=== PATIENT | male | born 1980 | race Caucasian/White ===

== ENCOUNTER → 2018-06-26 | Outpatient (CLI) | payer MEDICARE, MEDICAID ==
[2016-02-11 12:03] VITALS: BP 123/73
[~2018-06-26] MED LIST: ACET325T9 PO; CETI10TA16 PO; CLON2TAB9 PO; DIVA-53 PO; GABA300C18 PO; HYDR-2145 PO; HYDR-2761 PO; LISI1TAB7 PO; METF10007 PO; OLAN15TA3 PO; ONDA4TAB7 PO; OXCA300T19 PO; OXYC1TAB15 PO; PRAMIPEXOLE PO; PRAZ5CAP2 PO; RISP2TAB33 PO; SIMV40TA3 PO; TRAZ-86 PO
--- NOTE | 2018-06-26 10:16 | KCIC ---
MRI left knee without contrast dated 06/26/2018. No comparison available. CLINICAL INDICATION: Left knee pain for one month. No known injury. TECHNIQUE: Routine multiplanar multisequence MR imaging performed. FINDINGS: Bone marrow signal is homogeneous. No marrow edema. Articular cartilage is intact. No osteochondral defect. There is mild thinning of the cartilage of the medial and lateral patellar facet and medial and lateral femoral trochlea. No significant joint effusion. No loose body. No significant popliteal cyst. Anterior cruciate and posterior cruciate ligaments intact. Medial and lateral collateral complexes intact. Iliotibial band, popliteus tendon and pes anserine complex within normal limits. Quadriceps and patellar tendon are intact. No abnormality of the medial or lateral retinaculum. Both menisci are normal in morphology and signal. No articular surface tear or para meniscal cyst. IMPRESSION: 1. No evidence of internal derangement. 2. Mild anterior compartment chondromalacia. Electronically signed by: Juni Christina MD (06/26/2018 10:13 AM) [id number]
== END | disposition home or self-care (01) ==
LOC: KCIC MRI 08:59
PROVIDERS: ATTEND Orthopaedic Surgery Sports Medicine
DX: M94.262 Chondromalacia, left knee (principal)
CPT/HCPCS: 73721

== ENCOUNTER → 2019-05-14 | Outpatient (CLI) | payer OTHER ==
[2016-02-11 12:03] VITALS: BP 123/73
[~2019-05-14] MED LIST changes: +LISI1TAB20 PO; -LISI1TAB7 PO; +SIMV40TA18 PO; -SIMV40TA3 PO; +TRAZ-123 PO; -TRAZ-86 PO
--- NOTE | 2019-05-14 10:20 | KCIC ---
AP and Lateral Views of the Chest 05/14/2019 12:00 AM Indication: Cough, shortness of breath, symptoms x3 months. Comparison: chest radiograph January 01, 2016. Findings: There is no focal consolidation or infiltrate identified. The cardiomediastinal silhouette is within normal limits. There is no evidence of pneumothorax or pleural effusion. No acute osseous abnormalities are identified. Impression: No evidence of acute cardiopulmonary process. Electronically signed by: Cole Major MD (05/14/2019 10:17 AM) [id number]
== END | disposition home or self-care (01) ==
LOC: KCIC 09:40
PROVIDERS: ATTEND Internal Medicine Pulmonary Disease
DX: R05 Cough (principal); R06.02 Shortness of breath
CPT/HCPCS: 71046

== ENCOUNTER → 2019-06-14 | Outpatient (CLI) | payer OTHER ==
[2016-02-11 12:03] VITALS: BP 123/73
== END ==
LOC: LAB 09:53
PROVIDERS: ATTEND Orthopaedic Surgery Sports Medicine
DX: M17.11 Unilateral primary osteoarthritis, right knee (principal)
CPT/HCPCS: 36415; 85651; 86141

== ENCOUNTER → 2019-06-15 | Outpatient (CLI) | payer OTHER ==
[2016-02-11 12:03] VITALS: BP 123/73
--- NOTE | 2019-06-15 10:23 | RAD ---
MRI study of the right shoulder without contrast Clinical indications: Worsening right shoulder pain. No known injury. TECHNIQUE: Noncontrast MRI sequences of the right shoulder were performed in all 3 planes. COMPARISON: Radiographic study of the right shoulder dated 06/14/2019. FINDINGS: There is increased signal within the supraspinatus tendon and infraspinatus tendon consistent with tendinosis. Partial articular surface tear of the lateral aspect of the supraspinatus tendon and infraspinatus tendon is seen at the attachment to the greater tubercle. However no full-thickness tear or complete tear of these tendons is seen. Subscapularis tendon is intact. The tendon of the long head of the biceps is intact. 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 Type III acromial process is seen. These findings may impinge the acromial humeral space. Chronic cystic change of the lateral humeral head is seen secondary to chronic impingement. No marrow infiltrative process or fracture is seen otherwise. No subdeltoid or subacromial bursitis is seen. The glenohumeral joint is unremarkable. No joint effusion is seen. No loose osteochondral body is seen. IMPRESSION: Tendinosis of the supraspinatus and infraspinatus tendons of the rotator cuff. Partial articular surface tear is seen at the insertion onto the greater tubercle but no complete rotator cuff tear is seen. Impingement of the acromial humeral space. Electronically signed by: Eusebio Tang MD (06/15/2019 10:20 AM) [facility]
== END | disposition home or self-care (01) ==
LOC: MRI 09:57
PROVIDERS: ATTEND Orthopaedic Surgery Sports Medicine
DX: M19.011 Primary osteoarthritis, right shoulder (principal); M75.101 Unspecified rotator cuff tear or rupture of right shoulder, not specified as traumatic; M75.81 Other shoulder lesions, right shoulder
CPT/HCPCS: 73221

== ENCOUNTER → 2020-11-25 | Outpatient (CLI) | payer OTHER ==
[2016-02-11 12:03] VITALS: BP 123/73
--- NOTE | 2020-11-25 12:41 | RESP ---
DATE OF SERVICE: 11/25/2020 The patient's FVC was 4.95, which is 97% predicted, FEV1 4.04, which is 100% of predicted. FEV1/FVC ratio was normal. No bronchodilators given. Lung volumes showed increased total lung capacity and increased residual volume. Diffusion capacity was 136% predicted. IMPRESSION: 1. No evidence of any obstructive airway disease. 2. No bronchodilators given. 3. Lung volumes consistent with hyperinflation. 4. Increased diffusion capacity. JEAN DR: Jc TID: [id number] CC: JEN VELEZ MD
== END ==
LOC: PF 08:23
PROVIDERS: ATTEND Internal Medicine Pulmonary Disease
DX: J45.909 Unspecified asthma, uncomplicated (principal)
CPT/HCPCS: 94010; 94726; 94729

== ENCOUNTER → 2021-01-07 | Outpatient (CLI) | payer OTHER ==
[2016-02-11 12:03] VITALS: BP 123/73
--- NOTE | 2021-01-12 07:50 | SLEEP ---
DATE OF STUDY: 01/07/2021 SLEEP STUDY ATTENDING PHYSICIAN: Jen Velez MD The patient is 41 years old, who weighs 218 pounds with a BMI of 32. The patient's Strathcona score was 2. The patient underwent diagnostic sleep study performed at [facility]. During the night of study, the patient spent 484 minutes in bed and slept for 451 minutes with a sleep efficiency of 93%. Sleep latency was 27 minutes with a REM latency of 275 minutes. During the night of study, the patient had 1 obstructive apnea, no mixed apnea, 3 central apneas and 30 hypopneas. The patient's AHI was 5 per hour with a REM AHI of 15 per hour and a supine AHI of 5 per hour. EKG monitoring revealed an average heart rate of 67 beats per minute. No arrhythmias observed. Nocturnal oximetry study revealed no significant desaturations. No PLMs observed. Due to low AHI, the patient did not meet the split night criteria for CPAP initiation; however, the patient had flow limitations, especially in REM sleep. The patient had loud snoring throughout the night. IMPRESSION: 1. Mild obstructive sleep apnea with moderate increase during REM sleep. Total AHI of 5 per hour with a REM AHI of 15 per hour. 2. No significant nocturnal hypoxia. 3. No significant periodic limb movements. RECOMMENDATIONS: 1. The patient has mild MANAS. Consider weight loss as initial form of treatment. 2. If the patient is clinically symptomatic or has comorbid conditions, then consider treatment of sleep apnea with either CPAP versus oral appliance. 3. Caution regarding driving when sleepy or sleep deprived. 4. Avoid [employer] depressants. SAVANNA DR: Jc TID: [id number] CC: JEN VELEZ MD
== END ==
LOC: SLPLAB 19:09
PROVIDERS: ATTEND Internal Medicine Pulmonary Disease
DX: G47.33 Obstructive sleep apnea (adult) (pediatric) (principal)
CPT/HCPCS: 95810